=== PATIENT | female | born 1960 | race African-American/Black ===

== ENCOUNTER 2016-09-25 08:17 | Emergency (ER) | payer OTHER ==
[~2016-09-25] VITALS: Ht 170.2 cm; Wt 75.5 kg
[~2016-09-25 08:17] MED LIST: ADVAIR DISK1 IN; ADVAIR DISK1 INH; ADVAIR DISK2 IN; ALBUTEROL S2.5 MG/.5 IN; ALBUTEROL SUL0.083 % IN; ALBUTEROL2.5 MG/3 M IN; ALBUTEROL2.5 MG/31 IN; AMOXICILLIN/CL875 MG OR; AMOXICILLIN/CL875 MG PO; AMOXIL875 MG OR; AUGMENTIN875 MG PO; AUGMENTIN875TAB OR; AUGMENTIN875TAB PO; AVELOX400 MG PO; AZITHROMYCIN250 MG PO; CEFTIN250 MG PO; CEPHALEXIN500 M1 PO; CIPRO500 MG PO; DECADRON4 MG OR; DELSYM30 MG/5 ML OR; DEPO-MEDROL40 MG/ML IM; DEPO-MEDROL80 MG/ML IM; DOXYCYCL HYC100 M3 OR; DULERA1 AE1 IN; DUONEB IN; FLEXERIL PO; FLEXERIL5 M1 PO; FLONASE NASAL50 MCG; HYDROXYZ HCL25 MG OR; KETOROLAC60 MG/2 ML IM; LANTUS100 MG/ML SC; LEVAQUIN500 MG PO; LIPITOR20 M1 PO; LORATADINE10 M1 PO; LORTAB 10 PO; LORTAB 1010 MG PO; Levaquin OR; MEDDOSEPAK OR; MEDDOSEPAK PO; METFORMIN500 MG PO; MIRACLEMM PO; NAPROSYN500 MG PO; POLYTRIM OS; POLYTRIM OU; PRAVACHOL20 MG PO; PREDNISONE10 MG PO; PREDNISONE20 MG OR; PREDNISONE20 MG PO; PROAIR HFA IN; PROVENTIL HFA IN; PROVENTIL0.083 % IN; ROCEPHIN 1 GM1 GM IM; ROCEPHIN 2250 MG/VIA IM; SINGULAIR 10 MG10 MG PO; SINGULAIR 4MG.10 MG PO; SINGULAIR OR; SINGULAIR10 MG OR; SINGULAIR10 MG PO; SOLU-MEDROL125 MG IM; SULFACET SOD10 % OS; TESSALON PER100 MG PO; THEO-24200 MG OR; TRIAMCINOLON0.05 % EX; TRIAMCINOLON0.11 EX; ULTRAM50 MG PO; VENTOLIN HFA IN; ZITHROMAX250 MG OR; ZITHROMAX250 MG PO; ZITHROMAX500 MG OR; ZITHROMAX500 MG PO; ZPAK OR; ZPAK PO; [UNRECOGNIZED DRUG - OTHER]
[2016-09-25] MEDS ORDERED: PROTONIX40 M2 PO (09:09)
[2016-09-25] MEDS ORDERED: LOSARTAN POT50 MG PO (09:10)
[2016-09-25 09:45] LABS: URINE BILIRUBIN - DIPSTICK NEGATIVE (NEGATIVE); URINE BLOOD DIPSTICK NEGATIVE (NEGATIVE); URINE CLARITY CLEAR; URINE COLOR YELLOW; URINE GLUCOSE - DIPSTICK NEGATIVE (NEGATIVE); URINE KETONE NEGATIVE (NEGATIVE); URINE LEUK ESTERASE NEGATIVE (Negative); URINE NITRITE - DIPSTICK NEGATIVE (Negative); URINE PH 5.5 (4.5-8.0); URINE PROTEIN - DIPSTICK NEGATIVE (NEG-TRACE); URINE SPECIFIC GRAVITY >=1.030; URINE UROBILINOGEN - DIPSTICK 0.2 E.U./dL (0.2)
[2016-09-25 10:01] LABS: HEMATOCRIT 39.4 % (37.0-47.0); HEMOGLOBIN 12.5 g/dl (12.0-16.0); IMMATURE GRANULOCYTES 0.4 % (0.0-1.0); MEAN CELL VOLUME 72.8 fL CALC (80.0-100.0); MEAN CORPUSCULAR HGB 23.1 pG CALC (26.0-32.0); MEAN CORPUSCULAR HGB CONC 31.7 g/L CALC (32.0-36.0); NEUT# 4.96 thou/uL (2.00-7.15); RED BLOOD COUNT 5.41 mill/uL (4.20-5.60)
[2016-09-25 10:12] LABS: ALBUMIN 4.2 g/dL (3.2-5.0); ALKALINE PHOSPHATASE 77 u/l (38-126); ANION GAP 15 (6-22 (CALC)); BILIRUBIN, TOTAL 0.3 mg/dL (0.0-1.4); BUN 9 mg/dL (7-17); BUN/CREATININE RATIO 12 (12-20 (CALC)); CALCIUM 9.6 mg/dL (8.4-10.2); CARBON DIOXIDE 25 mmol/l (22-30); CHLORIDE 107 mmol/l (95-108); CREATININE 0.7 mg/dL (0.5-1.0); GFR > 60 ML/MIN (>=60 (CALC)); GFR FOR AFR.AMER. > 60 ML/MIN (>=60 (CALC)); GLUCOSE 89 mg/dL (65-105); LIPASE 205 u/l (23-300); POTASSIUM 4.2 mmol/l (3.5-5.1); SGOT/AST 14 u/l (14-36); SGPT/ALT 23 u/l (9-52); SODIUM 142 mmol/l (137-146); TOTAL PROTEIN 7.2 g/dL (6.3-8.2)
[2016-09-25] MEDS ORDERED: PERCOCET 5/325M1 TAB PO (11:30)
[2016-09-25 11:40] VITALS: BP 118/72
== END 2016-09-25 11:41 | disposition home or self-care (01) | DRG 392 ==
LOC: ED 08:17
PROVIDERS: Emergency Medicine
DX: R10.2 Pelvic and perineal pain (principal); F17.210 Nicotine dependence, cigarettes, uncomplicated; J45.909 Unspecified asthma, uncomplicated; E78.00 Pure hypercholesterolemia, unspecified; Z90.710 Acquired absence of both cervix and uterus

== ENCOUNTER 2016-10-22 14:44 | Day surgery (SDC) | payer OTHER ==
[~2016-10-22] VITALS: Ht 170.2 cm; Wt 72.6 kg
[~2016-10-22 14:44] MED LIST changes: +CLARITIN10 M1 PO; +LOSARTAN POT50 MG PO; +PERCOCET 5/325M1 TAB PO; +PROAIR HFA108 MCG/AC PO; +PROTONIX40 M2 PO
[2016-10-22 17:07] VITALS: BP 114/77
== END 2016-10-22 16:52 | disposition home or self-care (01) | DRG 392 ==
LOC: ENDO 14:44 → ORM 17:55 → ENDO 17:55 → ORM 18:30
PROVIDERS: ATTEND Internal Medicine Gastroenterology
PROC: 0DB68ZX Excision of Stomach, Via Natural or Artificial Opening Endoscopic, Diagnostic (ICD-10-PCS; principal; 2016-10-22)
DX: K21.9 Gastro-esophageal reflux disease without esophagitis (principal); F45.8 Other somatoform disorders; K59.09 Other constipation; J45.909 Unspecified asthma, uncomplicated; K29.50 Unspecified chronic gastritis without bleeding; K44.9 Diaphragmatic hernia without obstruction or gangrene; J34.89 Other specified disorders of nose and nasal sinuses; Z86.010 Personal history of colon polyps

== ENCOUNTER 2017-04-11 07:03 | Day surgery (SDC) | payer OTHER ==
[~2017-04-11] VITALS: Ht 170.2 cm; Wt 68.0 kg
[~2017-04-11 07:03] MED LIST changes: +IPRATROPIU0.5 MG/3 M IN; +LIPITOR40 M1 PO; +MOTRIN800 MG PO
[2017-04-11 10:28] VITALS: BP 116/67
== END 2017-04-11 10:20 | disposition home or self-care (01) | DRG 951 ==
LOC: ENDO 07:03 → ORM 09:00 → ENDO 10:20
PROVIDERS: ATTEND Surgery
PROC: 0DBL8ZX Excision of Transverse Colon, Via Natural or Artificial Opening Endoscopic, Diagnostic (ICD-10-PCS; principal; 2017-04-11)
DX: Z12.11 Encounter for screening for malignant neoplasm of colon (principal); D12.3 Benign neoplasm of transverse colon; F17.210 Nicotine dependence, cigarettes, uncomplicated; Z86.010 Personal history of colon polyps

== ENCOUNTER 2017-11-15 10:54 | Emergency (ER) | payer OTHER ==
[~2017-11-15] VITALS: Ht 170.2 cm; Wt 72.3 kg
[~2017-11-15 10:54] MED LIST changes: +GENTAMICIN15 ML/BTL OU
[2017-11-15] MEDS ORDERED: ZITHROMAX250 MG PO (11:05)
[2017-11-15] MEDS ORDERED: CRESTOR40 MG PO (11:09)
[2017-11-15] MEDS ORDERED: HYDROMORPHON8 MG PO (11:09)
[2017-11-15 11:15] VITALS: BP 120/61
== END 2017-11-15 11:15 | disposition home or self-care (01) | DRG 153 ==
LOC: ED 10:54
DX: J32.9 Chronic sinusitis, unspecified (principal); I10 Essential (primary) hypertension; E78.00 Pure hypercholesterolemia, unspecified; R05 Cough; R09.81 Nasal congestion

== ENCOUNTER 2018-01-09 00:05 | Emergency (ER) | payer OTHER ==
[~2018-01-09] VITALS: Ht 170.2 cm; Wt 68.0 kg
[~2018-01-09 00:05] MED LIST changes: +CRESTOR40 MG PO; +HYDROMORPHON8 MG PO
[2018-01-09] MEDS ORDERED: BENADRYL 50MG C50 MG PO (00:30)
[2018-01-09 00:50] VITALS: BP 117/88
== END 2018-01-09 00:50 | disposition home or self-care (01) ==
LOC: ED 00:05
DX: T78.40XA Allergy, unspecified, initial encounter (principal); I10 Essential (primary) hypertension; E78.00 Pure hypercholesterolemia, unspecified; F17.210 Nicotine dependence, cigarettes, uncomplicated; X58.XXXA Exposure to other specified factors, initial encounter

== ENCOUNTER 2018-03-19 06:52 | Emergency (ER) | payer OTHER ==
[~2018-03-19] VITALS: Ht 170.2 cm; Wt 72.7 kg
[~2018-03-19 06:52] MED LIST changes: +BENADRYL 50MG C50 MG PO
[2018-03-19] MEDS ORDERED: PREDNISONE50 MG PO (07:21)
[2018-03-19] MEDS ORDERED: ZITHROMAX250 MG PO (07:21)
[2018-03-19] MEDS ORDERED: ALBUTEROL SUL0.083 % IN (07:21)
[2018-03-19 07:50] VITALS: BP 132/83
== END 2018-03-19 07:55 | disposition home or self-care (01) ==
LOC: ED 06:52
DX: J45.901 Unspecified asthma with (acute) exacerbation (principal); J20.9 Acute bronchitis, unspecified; I10 Essential (primary) hypertension; F17.210 Nicotine dependence, cigarettes, uncomplicated; T48.6X6A Underdosing of antiasthmatics, initial encounter; Z91.128 Patient's intentional underdosing of medication regimen for other reason; R05 Cough; R09.81 Nasal congestion; R09.89 Other specified symptoms and signs involving the circulatory and respiratory systems

== ENCOUNTER 2018-08-13 09:51 | Emergency (ER) | payer OTHER ==
[~2018-08-13] VITALS: Ht 170.2 cm; Wt 77.0 kg
[~2018-08-13 09:51] MED LIST changes: +PREDNISONE50 MG PO
[2018-08-13] MEDS ORDERED: ZITHROMAX250 MG PO (11:13)
[2018-08-13] MEDS ORDERED: MEDDOSEPAK PO (11:13)
[2018-08-13 11:23] VITALS: BP 144/93
== END 2018-08-13 11:23 | disposition home or self-care (01) ==
LOC: ED 09:51
DX: J06.9 Acute upper respiratory infection, unspecified (principal); J45.909 Unspecified asthma, uncomplicated; I10 Essential (primary) hypertension; F17.210 Nicotine dependence, cigarettes, uncomplicated; R09.81 Nasal congestion; R05 Cough; R06.2 Wheezing

== ENCOUNTER 2018-11-18 15:57 | Emergency (ER) | payer OTHER ==
[~2018-11-18] VITALS: Ht 170.2 cm; Wt 72.0 kg
[2018-11-18 16:31] LABS: HEMATOCRIT 41.1 % (37.0-47.0); HEMOGLOBIN 12.9 g/dl (12.0-16.0); IMMATURE GRANULOCYTES 0.4 % (0.0-5.0); MEAN CELL VOLUME 73.3 fL CALC (80.0-100.0); MEAN CORPUSCULAR HGB CONC 31.4 g/L CALC (32.0-36.0); NEUT# 7.01 thou/uL (2.00-7.15); RED BLOOD COUNT 5.61 mill/uL (4.20-5.60); RED CELL DISTRI WIDTH 15.9 % (11.5-15.5)
[2018-11-18 16:53] LABS: ALBUMIN 4.1 g/dL (3.2-5.0); ALKALINE PHOSPHATASE 86 u/l (38-126); ANION GAP 13 (6-22 (CALC)); BUN 12 mg/dL (7-17); BUN/CREATININE RATIO 14 (12-20 (CALC)); CARBON DIOXIDE 24 mmol/l (22-30); CHLORIDE 107 mmol/l (95-108); CREATININE 0.9 mg/dL (0.5-1.0); GFR > 60 ML/MIN (>=60 (CALC)); GFR FOR AFR.AMER. > 60 ML/MIN (>=60 (CALC)); LIPASE 202 u/l (23-300); POTASSIUM 3.4 mmol/l (3.5-5.1); SODIUM 141 mmol/l (137-146); TOTAL PROTEIN 6.9 g/dL (6.3-8.2)
[2018-11-18 16:57] LABS: BILIRUBIN, TOTAL 0.5 mg/dL (0.0-1.4); SGOT/AST 30 u/l (14-36)
[2018-11-18 19:35] VITALS: BP 121/67
== END 2018-11-18 19:57 | disposition home or self-care (01) ==
LOC: ED 15:57
PROVIDERS: Family Medicine
DX: R07.89 Other chest pain (principal); I10 Essential (primary) hypertension; F17.200 Nicotine dependence, unspecified, uncomplicated; R19.7 Diarrhea, unspecified

== ENCOUNTER 2019-02-18 10:51 | Emergency (ER) | payer OTHER ==
[~2019-02-18] VITALS: Ht 170.2 cm; Wt 74.6 kg
[~2019-02-18 10:51] MED LIST changes: +DILAUDID8 MG PO; +LIPITOR80 M1 PO; +PROTONIX40 MG PO; +VITAMIN B-121000 MCG PO; +VITAMIN D31000 UNI1 PO
[2019-02-18 11:20] VITALS: BP 141/63
== END 2019-02-18 11:18 | disposition home or self-care (01) ==
LOC: ED 10:51
DX: I10 Essential (primary) hypertension (principal); F17.210 Nicotine dependence, cigarettes, uncomplicated

== ENCOUNTER 2019-02-26 05:50 | Observation (INO) | payer OTHER ==
[~2019-02-26] VITALS: Ht 170.2 cm; Wt 73.0 kg
[2019-02-26 06:51] LABS: HEMATOCRIT 43.4 % (37.0-47.0); HEMOGLOBIN 13.7 g/dl (12.0-16.0); IMMATURE GRANULOCYTES 0.2 % (0.0-5.0); MEAN CELL VOLUME 71.1 fL CALC (80.0-100.0); MEAN CORPUSCULAR HGB 22.5 pG CALC (26.0-32.0); MEAN CORPUSCULAR HGB CONC 31.6 g/L CALC (32.0-36.0); NEUT# 2.27 thou/uL (2.00-7.15); RED BLOOD COUNT 6.1 mill/uL (4.20-5.60); RED CELL DISTRI WIDTH 15.6 % (11.5-15.5)
[2019-02-26 07:05] LABS: ALBUMIN 4.3 g/dL (3.2-5.0); ALKALINE PHOSPHATASE 71 u/l (38-126); AMYLASE 73 u/l (30-110); ANION GAP 14 (6-22 (CALC)); BILIRUBIN, TOTAL 0.5 mg/dL (0.0-1.4); BUN 11 mg/dL (7-17); BUN/CREATININE RATIO 13 (12-20 (CALC)); CARBON DIOXIDE 25 mmol/l (22-30); CHLORIDE 101 mmol/l (95-108); CREATININE 0.9 mg/dL (0.5-1.0); GFR > 60 ML/MIN (>=60 (CALC)); GFR FOR AFR.AMER. > 60 ML/MIN (>=60 (CALC)); SGOT/AST 44 u/l (14-36); SODIUM 136 mmol/l (137-146)
[2019-02-26 09:50] VITALS: BP 115/69
[2019-02-26 10:03] LABS: COCAINE NEGATIVE (NEGATIVE); METHADONE NEGATIVE (NEGATIVE); TETRAHYDROCANNABIONOL NEGATIVE (NEGATIVE); TRICYLIC ANTIDEPRESSANTS NEGATIVE (NEGATIVE)
[2019-02-26 10:04] LABS: BARBITURATES NEGATIVE (NEGATIVE); OXCYCODONE NEGATIVE (NEGATIVE)
[2019-02-26 14:30] VITALS: BP 94/54
[2019-02-26 19:51] VITALS: BP 95/55
[2019-02-27 04:00] VITALS: BP 95/63
[2019-02-27 06:18] LABS: C. DIFFICILE TOXIN A&B NEGATIVE (NEGATIVE)
[2019-02-27 07:46] LABS: URINE BILIRUBIN - DIPSTICK NEGATIVE (NEGATIVE); URINE BLOOD DIPSTICK NEGATIVE (NEGATIVE); URINE COLOR DK. YELLOW; URINE GLUCOSE - DIPSTICK NEGATIVE (NEGATIVE); URINE KETONE 15 mg/dL (NEGATIVE); URINE LEUK ESTERASE NEGATIVE (NEGATIVE); URINE NITRITE - DIPSTICK NEGATIVE (Negative); URINE PH 5.5 (4.5-8.0); URINE PROTEIN - DIPSTICK NEGATIVE (NEG-TRACE); URINE UROBILINOGEN - DIPSTICK 0.2 E.U./dL (0.2)
[2019-02-27 08:43] VITALS: BP 104/63
[2019-02-27 15:53] VITALS: BP 138/79
[2019-02-27 19:50] VITALS: BP 117/63
[2019-02-28 04:40] VITALS: BP 109/67
[2019-02-28 07:50] VITALS: BP 125/70
[2019-02-28 08:51] VITALS: BP 125/70
[2019-02-28] MEDS ORDERED: METRONIDAZOL500 MG PO (09:36)
[2019-02-28] MEDS ORDERED: PREDNISONE10 MG PO (09:36)
[2019-02-28] MEDS ORDERED: Levaquin PO (09:36)
[2019-02-28] MEDS ORDERED: NICODERM C21 MG/242 TD (09:36)
[2019-02-28] MEDS ORDERED: FLORASTOR250 M1 PO (09:36)
== END 2019-02-28 11:31 | disposition home or self-care (01) ==
LOC: ED 05:50 → ED-I 07:33 → ED 07:47 → MS2 07:48
PROVIDERS: Family Medicine; ADMIT Internal Medicine; ATTEND Internal Medicine
DX: J44.1 Chronic obstructive pulmonary disease with (acute) exacerbation (principal); J45.901 Unspecified asthma with (acute) exacerbation; K52.9 Noninfective gastroenteritis and colitis, unspecified; I10 Essential (primary) hypertension; E78.5 Hyperlipidemia, unspecified; F17.210 Nicotine dependence, cigarettes, uncomplicated; G89.29 Other chronic pain
CPT/HCPCS: G0378; J1956

== ENCOUNTER 2019-05-23 15:14 | Observation (INO) | payer OTHER ==
[~2019-05-23] VITALS: Ht 170.2 cm; Wt 78.2 kg
[~2019-05-23 15:14] MED LIST changes: +FLORASTOR250 M1 PO; +Levaquin PO; +METRONIDAZOL500 MG PO; +NICODERM C21 MG/242 TD
--- NOTE | 2019-05-23 15:35 | NUR ---
EDP AT BEDSIDE
--- NOTE | 2019-05-23 15:35 | NUR ---
PT FOLLOWS COMMANDS, SUGGISH WITH SLURRED SPEECH
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
--- NOTE | 2019-05-23 15:40 | NUR ---
PT PULLED J LOOP OFF OF IV, BLOOD STARTED TO SQUIRT OUT, BLEEDING WAS CONTAINED AND HUB APPLIED. SECURE BANDAGE APPLIED FOR SAFETY.
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
[2019-05-23 16:12] LABS: IMMATURE GRANULOCYTES 1.1 % (0.0-5.0); MEAN CORPUSCULAR HGB 23.1 pG CALC (26.0-32.0); MEAN CORPUSCULAR HGB CONC 31.3 g/L CALC (32.0-36.0); NEUT# 7.26 thou/uL (2.00-7.15); RED BLOOD COUNT 4.97 mill/uL (4.20-5.60); RED CELL DISTRI WIDTH 16.1 % (11.5-15.5)
[2019-05-23 16:13] LABS: HEMATOCRIT 36.8 % (37.0-47.0); HEMOGLOBIN 11.5 g/dl (12.0-16.0)
[2019-05-23 16:30] LABS: ALBUMIN 4.2 g/dL (3.2-5.0); ALKALINE PHOSPHATASE 70 u/l (38-126); ANION GAP 14 (6-22 (CALC)); BILIRUBIN, TOTAL 0.6 mg/dL (0.0-1.4); BUN 7 mg/dL (7-17); BUN/CREATININE RATIO 11 (12-20 (CALC)); CARBON DIOXIDE 20 mmol/l (22-30); CHLORIDE 107 mmol/l (95-108); CREATININE 0.7 mg/dL (0.5-1.0); GFR > 60 ML/MIN (>=60 (CALC)); GFR FOR AFR.AMER. > 60 ML/MIN (>=60 (CALC)); LIPASE 106 u/l (23-300); POTASSIUM 3.4 mmol/l (3.5-5.1); SGOT/AST 20 u/l (14-36); SODIUM 138 mmol/l (137-146); TOTAL PROTEIN 7.4 g/dL (6.3-8.2)
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
--- NOTE | 2019-05-23 17:30 | NUR ---
PT MADE AWARE OF THE NEED FOR A URINE SAMPLE, PT STATES THAT SHE IS UNABLE TO
--- NOTE | 2019-05-23 18:02 | NUR ---
SBAR PRINTED TO FLOOR
--- NOTE | 2019-05-23 18:38 | NUR ---
SPOKE TO BARBARA, PHARMACY PRODUCTION EXPEDITER. PER BARBARA, DILUTE THE NARCAN IN 500 MLS OF NORMAL SALINE AND INFUSE OVER 1 HOUR.
[2019-05-23 19:06] LABS: URINE BILIRUBIN - DIPSTICK NEGATIVE (NEGATIVE); URINE BLOOD DIPSTICK NEGATIVE (NEGATIVE); URINE COLOR YELLOW; URINE GLUCOSE - DIPSTICK NEGATIVE (NEGATIVE); URINE KETONE NEGATIVE (NEGATIVE); URINE LEUK ESTERASE NEGATIVE (NEGATIVE); URINE NITRITE - DIPSTICK NEGATIVE (Negative); URINE PH 5.5 (4.5-8.0); URINE PROTEIN - DIPSTICK NEGATIVE (NEG-TRACE); URINE UROBILINOGEN - DIPSTICK 0.2 E.U./dL (0.2)
[2019-05-23 19:12] LABS: BARBITURATES NEGATIVE (NEGATIVE); COCAINE NEGATIVE (NEGATIVE); METHADONE NEGATIVE (NEGATIVE); OXCYCODONE NEGATIVE (NEGATIVE); TETRAHYDROCANNABIONOL NEGATIVE (NEGATIVE); TRICYLIC ANTIDEPRESSANTS NEGATIVE (NEGATIVE)
--- NOTE | 2019-05-23 20:23 | NUR ---
ATTEMPTED TO CALL ICU, NO ANSWER, WILL TRY AGAIN IN FIVE MINS
--- NOTE | 2019-05-23 20:41 | NUR ---
CALLED AND NURSE PAWAN STATED THAT SHE WILL CALL BACK AFTER SHE HUNG A DRIP. WILL BE ON STANDBY
--- NOTE | 2019-05-23 21:21 | NUR ---
REPORT YEFRI VILLALTA IN ICU
--- NOTE | 2019-05-23 21:22 | NUR ---
PT TRANSPORTED TO ICU VIA STRETCHER. PT STABLE AND IN NO DISTRESS. CARE ASSUMED TO PAWAN
[2019-05-23 22:00] VITALS: BP 119/72
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
[2019-05-23 22:05] VITALS: BP 119/72
[2019-05-23 23:00] VITALS: BP 131/78
[2019-05-24] VITALS (8 sets, daily range): BP systolic 106–149; BP diastolic 49–76
--- NOTE | 2019-05-24 00:08 | NUR ---
PT RESTING IN BED WITH EYES CLOSED AND FACE RELAXED. FAMILY IN TO BRING CELL PHONE AND VISIT SHORTLY THAN LEFT. REMAINS IN SR WITH HR 60S 02 SAT 100% ON RA. WILL CONTINUE TO MONITOR.
--- NOTE | 2019-05-24 02:14 | NUR ---
PT CONTINUES TO REST WITH EYES CLOSED AND FACE RELAXED. VITAL SIGNS REMAIN STABLE. WILL CONTINUE TO MONITOR.
--- NOTE | 2019-05-24 04:17 | NUR ---
REMAINS STABLE. NO CHANGE IN ASSESSMENT. UP TO [facility] PRN.
--- NOTE | 2019-05-24 06:00 | NUR ---
CONTINUES TO REST WITH EYES CLOSED AND FACE RELAXED. NO COMPLAINTS AND VITAL SIGNS REMAIN STABLE AND AFEBRILE.
--- NOTE | 2019-05-24 07:10 | NUR ---
pt awake in bed; no apparent distress noted; pt offers no complaints; assessment completed at this time; pt alert and oriented; denies pain; no n/v noted; resp even and unlabored; lungs clear with exp wheezing; pt denies resp distress; skin color wnl; ra; fnp cough noted; hr reg; strong pulses; no edema noted; bilat tavo hose intact; sr on monitor; abd soft with bs present; no bm noted per underwriter solicitation director; pt admits to voiding without complication; no urine to inspect at this time; bsc; #18 intact to lac; no redness or edema noted at site; plan of care explained; pt encouraged to use call light; will continue to monitor
--- NOTE | 2019-05-24 08:10 | NUR ---
Dr Griggs present at bedside to assess pt and discuss plan of care
--- NOTE | 2019-05-24 08:21 | NUR ---
awake in bed; offers no complaints; no apparent distress noted; sr on monitor; iv intact; call light within reach; will continue to monitor
[2019-05-24 09:14] LABS: HEMATOCRIT 38.6 % (37.0-47.0); HEMOGLOBIN 12.3 g/dl (12.0-16.0); MEAN CELL VOLUME 73.7 fL CALC (80.0-100.0); MEAN CORPUSCULAR HGB 23.5 pG CALC (26.0-32.0); MEAN CORPUSCULAR HGB CONC 31.9 g/L CALC (32.0-36.0); RED BLOOD COUNT 5.24 mill/uL (4.20-5.60); RED CELL DISTRI WIDTH 16.6 % (11.5-15.5)
[2019-05-24 09:30] LABS: BUN 8 mg/dL (7-17); BUN/CREATININE RATIO 12 (12-20 (CALC)); CHLORIDE 107 mmol/l (95-108); CREATININE 0.6 mg/dL (0.5-1.0); GFR > 60 ML/MIN (>=60 (CALC)); GFR FOR AFR.AMER. > 60 ML/MIN (>=60 (CALC)); SODIUM 139 mmol/l (137-146)
[2019-05-24 09:31] LABS: ANION GAP 10 (6-22 (CALC)); CARBON DIOXIDE 26 mmol/l (22-30); POTASSIUM 4.3 mmol/l (3.5-5.1)
--- NOTE | 2019-05-24 10:05 | NUR ---
awake in bed; no apparent distress noted; pt offers no complaints; iv intact; sr on monitor; pt anxiously awaiting discharge; plan of care/ labs explained; call light within reach; will continue to monitor
--- NOTE | 2019-05-24 10:20 | NUR ---
IV site discontinued, cath intact. No edema , no redness, voices no discomfort.
--- NOTE | 2019-05-24 10:31 | NUR ---
Discharge instructions given. Patient verbalizes understanding of same. Discharged in stable condition via Wheelchair to Home with family. All belongings sent with pt.
== END 2019-05-24 10:35 | disposition home or self-care (01) ==
LOC: ED 15:14 → ED-I 15:41 → ED 15:41 → ED-I 17:38 → ED 18:02 → ICU 18:03
PROVIDERS: Family Medicine; Internal Medicine; ADMIT Internal Medicine; ATTEND Internal Medicine
DX: G93.49 Other encephalopathy (principal); F10.129 Alcohol abuse with intoxication, unspecified; E87.2 Acidosis; D72.829 Elevated white blood cell count, unspecified; I10 Essential (primary) hypertension; J44.9 Chronic obstructive pulmonary disease, unspecified; E78.5 Hyperlipidemia, unspecified; F17.200 Nicotine dependence, unspecified, uncomplicated

== ENCOUNTER 2020-02-09 16:26 | Emergency (ER) | payer OTHER ==
[~2020-02-09] VITALS: Ht 170.2 cm; Wt 92.0 kg
[2020-02-09] MEDS ORDERED: DULERA1 AE1 IN (16:59)
[2020-02-09] MEDS ORDERED: SINGULAIR10 MG PO (16:59)
[2020-02-09] MEDS ORDERED: ATORVASTATIN CA80 MG PO (17:10)
[2020-02-09] MEDS ORDERED: LOSARTAN POTASS50 MG PO (17:10)
[2020-02-09 17:13] LABS: HEMATOCRIT 36.6 % (37.0-47.0); HEMOGLOBIN 11.1 g/dl (12.0-16.0); IMMATURE GRANULOCYTES 0.4 % (0.0-5.0); MEAN CELL VOLUME 74.1 fL CALC (80.0-100.0); MEAN CORPUSCULAR HGB 22.5 pG CALC (26.0-32.0); MEAN CORPUSCULAR HGB CONC 30.3 g/dL CAL (32.0-36.0); NEUT# 7.3 thou/uL (2.00-7.15); RED BLOOD COUNT 4.94 mill/uL (4.20-5.60); RED CELL DISTRI WIDTH 16.2 % (11.5-15.5)
[2020-02-09 17:27] LABS: ALBUMIN 4.3 g/dL (3.2-5.0); ALKALINE PHOSPHATASE 86 u/l (38-126); ANION GAP 12 (6-22 (CALC)); BUN 9 mg/dL (7-17); BUN/CREATININE RATIO 12 (12-20 (CALC)); CARBON DIOXIDE 26 mmol/l (22-30); CHLORIDE 107 mmol/l (95-108); CREATININE 0.7 mg/dL (0.5-1.0); ETHYL ALCOHOL 0 mg/dl (0-30); GFR > 60 ML/MIN (>=60 (CALC)); GFR FOR AFR.AMER. > 60 ML/MIN (>=60 (CALC)); LIPASE 234 u/l (23-300); MAGNESIUM 2.2 mg/dL (1.6-2.3); POTASSIUM 3.6 mmol/l (3.5-5.1); SGOT/AST 17 u/l (14-36); SODIUM 141 mmol/l (137-146); TOTAL PROTEIN 7.4 g/dL (6.3-8.2)
[2020-02-09 17:29] LABS: URINE BILIRUBIN - DIPSTICK NEGATIVE (NEGATIVE); URINE BLOOD DIPSTICK NEGATIVE (NEGATIVE); URINE COLOR YELLOW; URINE GLUCOSE - DIPSTICK NEGATIVE (NEGATIVE); URINE KETONE NEGATIVE (NEGATIVE); URINE LEUK ESTERASE NEGATIVE (NEGATIVE); URINE NITRITE - DIPSTICK NEGATIVE (Negative); URINE PROTEIN - DIPSTICK NEGATIVE (NEG-TRACE); URINE SPECIFIC GRAVITY >=1.030; URINE UROBILINOGEN - DIPSTICK 0.2 E.U./dL (0.2)
[2020-02-09 17:30] LABS: ACT PARTIAL THROMBO TIME 23.9 SECONDS (20.0-32.5); PROTHROMBIN TIME 10.1 SECONDS (9.0-12.5)
[2020-02-09 17:32] LABS: BILIRUBIN, TOTAL 0.3 mg/dL (0.0-1.4)
[2020-02-09] MEDS ORDERED: MECLIZINE25 MG PO (18:39)
[2020-02-09 18:45] VITALS: BP 136/72
== END 2020-02-09 18:55 | disposition home or self-care (01) ==
LOC: ED 16:26
DX: R42 Dizziness and giddiness (principal); I10 Essential (primary) hypertension; J45.909 Unspecified asthma, uncomplicated; T46.5X6A Underdosing of other antihypertensive drugs, initial encounter; F17.200 Nicotine dependence, unspecified, uncomplicated; Z91.128 Patient's intentional underdosing of medication regimen for other reason
CPT/HCPCS: Q9967

== ENCOUNTER 2020-10-02 13:25 | Emergency (ER) | payer OTHER ==
[~2020-10-02 13:25] MED LIST changes: +ATORVASTATIN CA80 MG PO; +LOSARTAN POTASS50 MG PO; +MECLIZINE25 MG PO
[2020-10-02 14:27] LABS: HEMATOCRIT 38.4 % (37.0-47.0); HEMOGLOBIN 11.7 g/dl (12.0-16.0); IMMATURE GRANULOCYTES 0.4 % (0.0-5.0); MEAN CELL VOLUME 73.4 fL CALC (80.0-100.0); MEAN CORPUSCULAR HGB 22.4 pG CALC (26.0-32.0); MEAN CORPUSCULAR HGB CONC 30.5 g/dL CAL (32.0-36.0); NEUT# 5.62 thou/uL (2.00-7.15); RED BLOOD COUNT 5.23 mill/uL (4.20-5.60)
[2020-10-02 14:39] LABS: ALBUMIN 4.5 g/dL (3.2-5.0); ALKALINE PHOSPHATASE 84 u/l (38-126); ANION GAP 11 (6-22 (CALC)); BUN 13 mg/dL (7-17); BUN/CREATININE RATIO 17 (12-20 (CALC)); CARBON DIOXIDE 27 mmol/l (22-30); CHLORIDE 104 mmol/l (95-108); CREATININE 0.8 mg/dL (0.5-1.0); GFR > 60 ML/MIN (>=60 (CALC)); GFR FOR AFR.AMER. > 60 ML/MIN (>=60 (CALC)); LIPASE 136 u/l (23-300); POTASSIUM 3.9 mmol/l (3.5-5.1); SGOT/AST 20 u/l (14-36); SODIUM 138 mmol/l (137-146)
[2020-10-02 14:40] LABS: BILIRUBIN, TOTAL 0.7 mg/dL (0.0-1.4)
[2020-10-02 15:19] LABS: URINE BILIRUBIN - DIPSTICK NEGATIVE (NEGATIVE); URINE BLOOD DIPSTICK NEGATIVE (NEGATIVE); URINE COLOR YELLOW; URINE GLUCOSE - DIPSTICK NEGATIVE (NEGATIVE); URINE KETONE NEGATIVE (NEGATIVE); URINE LEUK ESTERASE NEGATIVE (NEGATIVE); URINE PH 5.5 (4.5-8.0); URINE PROTEIN - DIPSTICK NEGATIVE (NEG-TRACE); URINE SPECIFIC GRAVITY >=1.030; URINE UROBILINOGEN - DIPSTICK 0.2 E.U./dL (0.2)
[2020-10-02 15:21] LABS: URINE NITRITE - DIPSTICK NEGATIVE (Negative)
[2020-10-02] MEDS ORDERED: TORADOL PO (16:09)
[2020-10-02 16:29] VITALS: BP 127/64
== END 2020-10-02 16:30 | disposition left against medical advice (07) | DRG 313 ==
LOC: ED 13:25
PROVIDERS: Family Medicine
DX: R07.89 Other chest pain (principal); I10 Essential (primary) hypertension; J45.909 Unspecified asthma, uncomplicated; K21.9 Gastro-esophageal reflux disease without esophagitis; F17.210 Nicotine dependence, cigarettes, uncomplicated; V49.50XA Passenger injured in collision with unspecified motor vehicles in traffic accident, initial encounter; Z91.19 Patient's noncompliance with other medical treatment and regimen
CPT/HCPCS: Q9967

== ENCOUNTER 2021-04-02 16:51 | Emergency (ER) | payer OTHER ==
[~2021-04-02] VITALS: Ht 170.2 cm; Wt 75.0 kg
[~2021-04-02 16:51] MED LIST changes: +TORADOL PO
[2021-04-02] MEDS ORDERED: MEDDOSEPAK PO (17:40)
[2021-04-02] MEDS ORDERED: ZITHROMAX250 MG PO (17:40)
[2021-04-02 17:43] VITALS: BP 145/75
== END 2021-04-02 18:02 | disposition home or self-care (01) ==
LOC: ED 16:51
DX: J06.9 Acute upper respiratory infection, unspecified (principal); I11.0 Hypertensive heart disease with heart failure; I50.9 Heart failure, unspecified; J44.9 Chronic obstructive pulmonary disease, unspecified; E78.00 Pure hypercholesterolemia, unspecified; K21.9 Gastro-esophageal reflux disease without esophagitis; F17.210 Nicotine dependence, cigarettes, uncomplicated; Z20.822 Contact with and (suspected) exposure to COVID-19

== ENCOUNTER 2021-04-25 11:44 | Observation (INO) | payer OTHER ==
[2021-04-25] VITALS (9 sets, daily range): BP systolic 97–135; BP diastolic 67–83
[~2021-04-25] VITALS: Ht 170.2 cm; Wt 68.0 kg
--- NOTE | 2021-04-25 11:50 | NUR ---
PT TO ROOM 15 VIA WC. ABLE TO STAND AND TRANSFER SELF.
[2021-04-25 12:48] LABS: IMMATURE GRANULOCYTES 0.4 % (0.0-5.0); MEAN CELL VOLUME 69.7 fL CALC (80.0-100.0); MEAN CORPUSCULAR HGB 22.9 pG CALC (26.0-32.0); MEAN CORPUSCULAR HGB CONC 32.9 g/dL CAL (32.0-36.0); NEUT# 10.68 thou/uL (2.00-7.15); RED BLOOD COUNT 6.46 mill/uL (4.20-5.60); RED CELL DISTRI WIDTH 16.9 % (11.5-15.5)
[2021-04-25 13:03] LABS: HEMOGLOBIN 14.8 g/dl (12.0-16.0)
[2021-04-25 13:05] LABS: ALBUMIN 4.9 g/dL (3.2-5.0); CREATININE 1.3 mg/dL (0.5-1.0); TOTAL PROTEIN 8.3 g/dL (6.3-8.2)
[2021-04-25 13:13] LABS: BILIRUBIN, TOTAL 0.9 mg/dL (0.0-1.4)
[2021-04-25 13:14] LABS: POTASSIUM 6.7 mmol/l (3.5-5.1)
--- NOTE | 2021-04-25 13:40 | NUR ---
PHARMACY CALLED FOR gtt.
[2021-04-25 13:50] LABS: URINE BILIRUBIN - DIPSTICK NEGATIVE (NEGATIVE); URINE BLOOD DIPSTICK NEGATIVE (NEGATIVE); URINE COLOR YELLOW; URINE GLUCOSE - DIPSTICK >=1000 mg/dL (NEGATIVE); URINE KETONE 15 mg/dL (NEGATIVE); URINE LEUK ESTERASE NEGATIVE (NEGATIVE); URINE PH 5.5 (4.5-8.0); URINE PROTEIN - DIPSTICK NEGATIVE (NEG-TRACE); URINE SPECIFIC GRAVITY <=1.005; URINE UROBILINOGEN - DIPSTICK 0.2 E.U./dL (0.2)
[2021-04-25 13:58] LABS: URINE NITRITE - DIPSTICK NEGATIVE (Negative)
--- NOTE | 2021-04-25 14:17 | NUR ---
PATIENT HAS FRIEND BEDSIDE.
--- NOTE | 2021-04-25 14:43 | NUR ---
PATIENT EDUCATED TO NEED FOR ADDITIONAL IV SITE, PATIENT IS BELLIGERENT TO STAFF, 3 NURSES AND FRONT OFFICE HELP. PATIENT REEDUCATED TO PPOC.
[2021-04-25] MEDS ORDERED: AMOXICILLIN500 MG PO (16:35)
--- NOTE | 2021-04-25 17:20 | NUR ---
REPORT CALLED TO ICU 8 RN
[2021-04-25 17:53] LABS: ANION GAP 12 (6-22 (CALC)); BUN 33 mg/dL (7-17); BUN/CREATININE RATIO 37 (12-20 (CALC)); CARBON DIOXIDE 33 mmol/l (22-30); CHLORIDE 93 mmol/l (95-108); CREATININE 0.9 mg/dL (0.5-1.0); GFR > 60 ML/MIN (>=60 (CALC)); GFR FOR AFR.AMER. > 60 ML/MIN (>=60 (CALC)); POTASSIUM 4.2 mmol/l (3.5-5.1); SODIUM 134 mmol/l (137-146)
--- NOTE | 2021-04-25 18:25 | NUR ---
PT ARRIVED TO THE FLOOR AT 1755. PT ON UNIT VIA STRETCHER AND ONE PERSON ASSISTANCE FROM THE ER. PT AMBULATORY WITH A STANDBY ASSISTANCE, TURN AND PIVOT. PT ORIENTATED TO ROOM, RIGHTS AND RESPONSIBILITIES. PT BELONGING INVENTORY, FALL CONTRACT AND ASSESSMENT AND HISTORY PREFORMED. PT EDUCATED OF CURRENT MEDICATIONS AND FREQUENCY OF VS. PT IN DENIAL OF DM DIAGNOSIS STATES "OH LORD DONT TELL ME THAT, IM NOT A DIABETIC, MY SISTER WAS A DIABETIC. THAT AINT ME." PT PROVIDED OF S/S OF DIABETES SUCH EXCESSIVE THIRST, WEIGHT LOSS AND PT'S AIC LAB MEASUREMENT. PT ASKS ONCE IM DISCHARGED I WONT BE A DIABETIC. WILL CONTINUE TO RE-EDUCATE PT. PT ALSO INFORMED OF NPO STATUS, STATES "THE HELL I AM, IM EATING THIS SALAD I BOUGHT FROM [employer]. TRY AND TAKE IT FROM ME." INFORMED PT OF POSSIBLE COMPLILCATIONS, STATES "I WONT EAT ENOUGH TO GET SICK OR CHANGE MY BLOOD SUGAR." WILL INFORM MD OF PT EATING. CALL LIGHT WITHIN REACH. INFORMED PT TO CALL FOR ASSISTANCE, WILL CONTINUE TO MONITOR CLOSELY.
[2021-04-25] MEDS ORDERED: FLONASE AL50 MCG/ACT IN (18:36)
[2021-04-25] MEDS ORDERED: PROVENTIL0.083 % IN (18:37)
[2021-04-25] MEDS ORDERED: ZPAK PO (18:37)
--- NOTE | 2021-04-25 18:45 | NUR ---
SBAR RECEIVED FROM KAMALJIT VENTURA. PATIENT RESTING QUIETLY IN BED. INSULIN DRIP @ 3ML/HR. NO DISTRESS NOTED. CALL LIGHT WITHIN REACH.
--- NOTE | 2021-04-25 19:45 | NUR ---
ASSESSMENT COMPLETE. PATIENT AWAKE, ALERT AND ORIENTED. VSS. NO DISTRESS NOTED. DENIES PAIN AT THIS TIME. EDUCATED ON INSULIN DRIP, REQUIRES RE-EDUCATION. BG 195, DRIP DECREASED TO 2ML/HR. PATIENT STABLE, CALL LIGHT WITHIN REACH.
--- NOTE | 2021-04-25 20:10 | NUR ---
DR. BORRERO CALLED APPROXIMATELY 1950, ORDERS RECEIVED. PATIENT GIVEN 15 UNITS LEVEMIR SUBCUTANEOUS, PER ORDER. INSTRUCTED TO DISCONTINUE INSULIN DRIP 1 HOUR AFTER INJECTION. WILL FOLLOW UP WITH ORDERS.
--- NOTE | 2021-04-25 21:10 | NUR ---
DISCONTINUED INSULIN DRIP PER MD ORDERS
[2021-04-26] VITALS (7 sets, daily range): BP systolic 93–140; BP diastolic 63–81
--- NOTE | 2021-04-26 00:37 | NUR ---
RESTING QUIETLY IN BED, EYES CLOSED. NO DISTRESS NOTED. BED IN LOW POSITION, LOCKED. CALL LIGHT WITHIN REACH.
--- NOTE | 2021-04-26 02:44 | NUR ---
PATIENT OOB TO RESTROOM, STANDBY ASSIST, TOLERATED WELL. 550ML CLEAR SADAF URINE OUT. VERBAL DIABETES EDUCATION PROVIDED TO PATIENT. PATIENT APPEARS TO BE IN DENIAL STATING, "I'M NOT DIABETIC, DON'T TELL ME THAT. MY SISTER OF DIABETES." DISCUSSED DIET AND EXERCISE WITH PATIENT. RECOMMENDED THAT PATIENT CONSULTS WITH DIETITIAN FOR FURTHER EDUCATION. WILL CONTINUE TO RE-EDUCATE AND ANSWER QUESTIONS NEEDED.
--- NOTE | 2021-04-26 04:34 | NUR ---
PATIENT RESTING COMFORTABLY IN BED, EYES CLOSED. ACCU CHECK PERFORMED, RESULT 233. NO C/O PAIN AT THIS TIME. VSS. CALL LIGHT WITHIN REACH, BED IN LOW POSITION
[2021-04-26 05:10] LABS: HEMATOCRIT 37.8 % (37.0-47.0); HEMOGLOBIN 12.3 g/dl (12.0-16.0); MEAN CELL VOLUME 70.7 fL CALC (80.0-100.0); MEAN CORPUSCULAR HGB CONC 32.5 g/dL CAL (32.0-36.0); RED BLOOD COUNT 5.35 mill/uL (4.20-5.60)
[2021-04-26 05:20] LABS: ANION GAP 12 (6-22 (CALC)); BUN 22 mg/dL (7-17); BUN/CREATININE RATIO 32 (12-20 (CALC)); CARBON DIOXIDE 24 mmol/l (22-30); CHLORIDE 102 mmol/l (95-108); CREATININE 0.7 mg/dL (0.5-1.0); GFR > 60 ML/MIN (>=60 (CALC)); GFR FOR AFR.AMER. > 60 ML/MIN (>=60 (CALC)); MAGNESIUM 2.2 mg/dL (1.6-2.3); POTASSIUM 4.1 mmol/l (3.5-5.1); SODIUM 134 mmol/l (137-146)
--- NOTE | 2021-04-26 07:00 | NUR ---
SHIFT REPORT RECEIVED FROM LORENZO CERVANTES. PT AWAKE ALERT AND APPROPRIATE. DENIES PAIN SOB OR DISCOMFORT. VSS. ACCUCHECK OBTAINED AND INSULIN GIVEN ON PREVIOUS SHIFT. CALL LIGHT WITHIN REACH. INSTRUCTED PT TO CALL FOR ASSISTANCE, VERBALIZES UNDERSTANDING.
--- NOTE | 2021-04-26 08:05 | NUR ---
PT REFUSING TO EAT BREAKFAST TRAY, STATES "I DONT TRUST THIS FOOD" WHEN ASKED WHY, PT STATES "DO I HAVE TO HAVE A REASON?" TRAY REMOVED, PT ASKED IF SHE WOULD FEEL MORE COMFORTABLE FROM FOOD FROM AN OUTSIDE SOURCE. STATES SHE WOULD LIKE TO CALL HER SISTER FOR FOOD, AND IF NOT SHE WILL LEAVE. PT EDUCATED AND REMINDED OF NEW DIAGNOSIS OF DM. PT OPEN AND WILLING TO STAY. WILL CONTINUE TO PROVIDE EDUCATION NEEDED.
--- NOTE | 2021-04-26 10:37 | NUR ---
MD ON FLOOR AT THIS TIME. PT STATES UNDERSTANDING OF POSSIBLE DISCHARGE ONCE LABS RESULT. WILL PROVIDE EDUCATION OF: CHECKING SUGAR DRAWING UP INSULIN INJECTING INSULIN AND SUBCUTANEOUS LOCATIONS ON THE BODY DIET OPTIONS FOR DIABETICS
[2021-04-26] MEDS ORDERED: LEVEMIR100 UNIT SC (11:32)
--- NOTE | 2021-04-26 12:00 | NUR ---
PT TAUGHT HOW TO CHECK SUGAR USING ACCUCHECK MACHINE, SLIDING SCALE PROVIDED FOR PATIENT TO SELECT AMOUNT OF COVERAGE. ACCURATELY READ AND CHOSE APPROPRIATE AMOUNT OF INSULIN. PT HAS TROUBLE DRAWING UP ONE UNIT OF INSULIN FOR BLOOD SUGAR OF 199. PT ABLE TO GIVE INSULIN, AFTER SOME ENCOURAGEMENT. MD MADE AWARE OF PT'S FIRST ATTEMPT. CONTINUE WITH DISCHARGE AND ENCOURAGE FOLLOW UP WITH PRIMARY CARE FOR FURTHER DIABETIC MANAGEMENT AND EDUCATION.
[2021-04-26] MEDS ORDERED: METFORMIN500 M2 PO (12:18)
--- NOTE | 2021-04-26 13:55 | NUR ---
pt discharged at this time in stable condition. pt given education/ verbal discussion of dm gone through at this time. states understanding. states she will make an appointment with pcp in am.
== END 2021-04-26 13:55 | disposition home or self-care (01) ==
LOC: ED 11:44 → ED-I 14:11 → ICU 16:33 → ED 16:33 → ICU 04-26 13:55
PROVIDERS: Family Medicine; ADMIT Hospitalist; ATTEND Hospitalist
DX: E11.10 Type 2 diabetes mellitus with ketoacidosis without coma (principal); E87.5 Hyperkalemia; I10 Essential (primary) hypertension; J44.9 Chronic obstructive pulmonary disease, unspecified; E78.5 Hyperlipidemia, unspecified; E87.1 Hypo-osmolality and hyponatremia; E87.8 Other disorders of electrolyte and fluid balance, not elsewhere classified; N17.9 Acute kidney failure, unspecified; E86.0 Dehydration; K21.9 Gastro-esophageal reflux disease without esophagitis; F17.210 Nicotine dependence, cigarettes, uncomplicated; Z20.822 Contact with and (suspected) exposure to COVID-19

== ENCOUNTER 2021-04-27 16:11 | Emergency (ER) | payer OTHER ==
[~2021-04-27] VITALS: Ht 170.2 cm; Wt 85.0 kg
[~2021-04-27 16:11] MED LIST changes: +AMOXICILLIN500 MG PO; +FLONASE AL50 MCG/ACT IN; +LEVEMIR100 UNIT SC; +METFORMIN500 M2 PO
[2021-04-27 17:31] LABS: HEMATOCRIT 38.6 % (37.0-47.0); HEMOGLOBIN 12.7 g/dl (12.0-16.0); IMMATURE GRANULOCYTES 0.3 % (0.0-5.0); MEAN CELL VOLUME 70.2 fL CALC (80.0-100.0); MEAN CORPUSCULAR HGB 23.1 pG CALC (26.0-32.0); MEAN CORPUSCULAR HGB CONC 32.9 g/dL CAL (32.0-36.0); NEUT# 3.33 thou/uL (2.00-7.15); RED BLOOD COUNT 5.5 mill/uL (4.20-5.60); RED CELL DISTRI WIDTH 15.2 % (11.5-15.5)
[2021-04-27 17:48] LABS: BUN 13 mg/dL (7-17); BUN/CREATININE RATIO 24 (12-20 (CALC)); CARBON DIOXIDE 21 mmol/l (22-30); CHLORIDE 105 mmol/l (95-108); CREATININE 0.6 mg/dL (0.5-1.0); GFR > 60 ML/MIN (>=60 (CALC)); GFR FOR AFR.AMER. > 60 ML/MIN (>=60 (CALC)); SODIUM 133 mmol/l (137-146); TOTAL PROTEIN 7.3 g/dL (6.3-8.2)
[2021-04-27 17:55] LABS: ALBUMIN 3.9 g/dL (3.2-5.0); ALKALINE PHOSPHATASE 73 u/l (38-126); ANION GAP 11 (6-22 (CALC)); BILIRUBIN, TOTAL 1.9 mg/dL (0.0-1.4); SGOT/AST 72 u/l (14-36)
[2021-04-27 18:49] VITALS: BP 138/87
== END 2021-04-27 18:50 | disposition home or self-care (01) ==
LOC: ED 16:11
PROVIDERS: Family Medicine
DX: E11.9 Type 2 diabetes mellitus without complications (principal); I10 Essential (primary) hypertension; F17.200 Nicotine dependence, unspecified, uncomplicated; Z79.4 Long term (current) use of insulin; Z79.84 Long term (current) use of oral hypoglycemic drugs

== ENCOUNTER 2021-04-29 06:17 | Emergency (ER) | payer OTHER ==
[~2021-04-29] VITALS: Ht 170.2 cm; Wt 69.0 kg
[2021-04-29 07:39] LABS: HEMOGLOBIN 13.5 g/dl (12.0-16.0); IMMATURE GRANULOCYTES 0.1 % (0.0-5.0); MEAN CELL VOLUME 73.1 fL CALC (80.0-100.0); MEAN CORPUSCULAR HGB CONC 31.4 g/dL CAL (32.0-36.0); NEUT# 4.07 thou/uL (2.00-7.15); RED BLOOD COUNT 5.88 mill/uL (4.20-5.60)
[2021-04-29 08:37] LABS: ALBUMIN 3.3 g/dL (3.2-5.0); ALKALINE PHOSPHATASE 74 u/l (38-126); ANION GAP 8 (6-22 (CALC)); BUN 8 mg/dL (7-17); BUN/CREATININE RATIO 14 (12-20 (CALC)); CARBON DIOXIDE 25 mmol/l (22-30); CHLORIDE 106 mmol/l (95-108); CREATININE 0.6 mg/dL (0.5-1.0); GFR > 60 ML/MIN (>=60 (CALC)); GFR FOR AFR.AMER. > 60 ML/MIN (>=60 (CALC)); POTASSIUM 4.3 mmol/l (3.5-5.1); SGOT/AST 36 u/l (14-36); SODIUM 135 mmol/l (137-146); TOTAL PROTEIN 6.2 g/dL (6.3-8.2)
[2021-04-29 08:53] LABS: BILIRUBIN, TOTAL 0.5 mg/dL (0.0-1.4)
[2021-04-29 09:07] VITALS: BP 124/69
== END 2021-04-29 09:07 | disposition home or self-care (01) ==
LOC: ED 06:17
DX: E11.65 Type 2 diabetes mellitus with hyperglycemia (principal); I10 Essential (primary) hypertension; F17.200 Nicotine dependence, unspecified, uncomplicated; Z79.4 Long term (current) use of insulin; Z79.84 Long term (current) use of oral hypoglycemic drugs

== ENCOUNTER 2021-07-13 05:19 | Emergency (ER) | payer OTHER ==
[~2021-07-13] VITALS: Ht 170.2 cm; Wt 68.0 kg
[2021-07-13] MEDS ORDERED: PREDNISONE50 MG PO (05:37)
[2021-07-13 05:54] VITALS: BP 139/75
== END 2021-07-13 06:01 | disposition home or self-care (01) ==
LOC: ED 05:19
DX: T49.8X1A Poisoning by other topical agents, accidental (unintentional), initial encounter (principal); L23.2 Allergic contact dermatitis due to cosmetics; I10 Essential (primary) hypertension; E11.9 Type 2 diabetes mellitus without complications; Z79.4 Long term (current) use of insulin; F17.200 Nicotine dependence, unspecified, uncomplicated

== ENCOUNTER 2021-09-27 07:31 | Emergency (ER) | payer OTHER ==
[~2021-09-27] VITALS: Ht 170.2 cm; Wt 72.0 kg
[2021-09-27 07:39] VITALS: BP 153/130
[2021-09-27 07:40] VITALS: BP 121/79
[2021-09-27] MEDS ORDERED: ALAVERT10 M1 PO (07:58)
[2021-09-27] MEDS ORDERED: NEBULIZER KIT/TUBING PO (07:58)
[2021-09-27] MEDS ORDERED: PROAIR HFA108 MCG/AC PO (07:58)
[2021-09-27] MEDS ORDERED: ZPAK PO (07:58)
[2021-09-27 08:00] VITALS: BP 100/71
[2021-09-27 08:50] VITALS: BP 100/71
== END 2021-09-27 08:50 | disposition home or self-care (01) ==
LOC: ED 07:31
DX: J30.9 Allergic rhinitis, unspecified (principal); I10 Essential (primary) hypertension; E11.9 Type 2 diabetes mellitus without complications; F17.210 Nicotine dependence, cigarettes, uncomplicated; Z79.4 Long term (current) use of insulin; Z20.822 Contact with and (suspected) exposure to COVID-19

== ENCOUNTER 2022-04-29 16:59 | Emergency (ER) | payer OTHER ==
[~2022-04-29] VITALS: Ht 170.2 cm; Wt 65.4 kg
[~2022-04-29 16:59] MED LIST changes: +ALAVERT10 M1 PO; +NEBULIZER KIT/TUBING PO
[2022-04-29 17:49] LABS: HEMOGLOBIN 12.9 g/dl (12.0-16.0); IMMATURE GRANULOCYTES 0.3 % (0.0-5.0); MEAN CELL VOLUME 72.1 fL CALC (80.0-100.0); MEAN CORPUSCULAR HGB 23.2 pG CALC (26.0-32.0); MEAN CORPUSCULAR HGB CONC 32.3 g/dL CAL (32.0-36.0); NEUT# 13.68 thou/uL (2.00-7.15); RED BLOOD COUNT 5.55 mill/uL (4.20-5.60); RED CELL DISTRI WIDTH 16.7 % (11.5-15.5)
[2022-04-29 17:55] LABS: ALBUMIN 4.7 g/dL (3.2-5.0); ALKALINE PHOSPHATASE 87 u/l (38-126); ANION GAP 20 (6-22 (CALC)); BILIRUBIN, TOTAL 0.7 mg/dL (0.0-1.4); BUN 8 mg/dL (7-17); BUN/CREATININE RATIO 10 (12-20 (CALC)); CARBON DIOXIDE 22 mmol/l (22-30); CHLORIDE 105 mmol/l (95-108); CREATININE 0.8 mg/dL (0.5-1.0); GFR FOR AFR.AMER. > 60 ML/MIN (>=60 (CALC)); GFR OTHER RACES > 60 ML/MIN (>=60 (CALC)); POTASSIUM 4.6 mmol/l (3.5-5.1); SGOT/AST 24 u/l (14-36); SODIUM 141 mmol/l (137-146); TOTAL PROTEIN 7.5 g/dL (6.3-8.2)
[2022-04-29] MEDS ORDERED: METFORMIN500 M2 PO (18:39)
[2022-04-29 19:00] VITALS: BP 117/77
[2022-04-29] MEDS ORDERED: PROVENTIL0.083 % IN (19:01)
[2022-04-29] MEDS ORDERED: PREDNISONE20 MG PO (19:01)
== END 2022-04-29 19:10 | disposition home or self-care (01) ==
LOC: ED 16:59
PROVIDERS: Internal Medicine
DX: J45.909 Unspecified asthma, uncomplicated (principal); I10 Essential (primary) hypertension; E11.9 Type 2 diabetes mellitus without complications; F17.210 Nicotine dependence, cigarettes, uncomplicated; Z79.84 Long term (current) use of oral hypoglycemic drugs
CPT/HCPCS: J3475

== ENCOUNTER 2022-05-17 16:36 | Emergency (ER) | payer OTHER ==
[~2022-05-17] VITALS: Ht 170.2 cm; Wt 63.0 kg
[2022-05-17 17:35] LABS: HEMATOCRIT 39.6 % (37.0-47.0); HEMOGLOBIN 12.7 g/dl (12.0-16.0); IMMATURE GRANULOCYTES 0.2 % (0.0-5.0); MEAN CELL VOLUME 72.5 fL CALC (80.0-100.0); MEAN CORPUSCULAR HGB 23.3 pG CALC (26.0-32.0); MEAN CORPUSCULAR HGB CONC 32.1 g/dL CAL (32.0-36.0); NEUT# 6.94 thou/uL (2.00-7.15); RED BLOOD COUNT 5.46 mill/uL (4.20-5.60); RED CELL DISTRI WIDTH 15.3 % (11.5-15.5)
[2022-05-17 17:45] LABS: ALKALINE PHOSPHATASE 90 u/l (38-126); BUN 10 mg/dL (7-17); BUN/CREATININE RATIO 13 (12-20 (CALC)); CARBON DIOXIDE 26 mmol/l (22-30); CHLORIDE 109 mmol/l (95-108); CREATININE 0.8 mg/dL (0.5-1.0); GFR FOR AFR.AMER. > 60 ML/MIN (>=60 (CALC)); GFR OTHER RACES > 60 ML/MIN (>=60 (CALC)); SGOT/AST 21 u/l (14-36); SODIUM 140 mmol/l (137-146); TOTAL PROTEIN 7.1 g/dL (6.3-8.2)
[2022-05-17 17:46] LABS: ANION GAP 9 (6-22 (CALC)); BILIRUBIN, TOTAL 0.4 mg/dL (0.0-1.4); POTASSIUM 3.9 mmol/l (3.5-5.1)
[2022-05-17] MEDS ORDERED: MEDDOSEPAK PO (18:11)
[2022-05-17 18:19] VITALS: BP 146/87
== END 2022-05-17 18:26 | disposition home or self-care (01) ==
LOC: ED 16:36
PROVIDERS: Nurse Practitioner
DX: M25.532 Pain in left wrist (principal); I10 Essential (primary) hypertension; E11.9 Type 2 diabetes mellitus without complications; J45.909 Unspecified asthma, uncomplicated; F17.200 Nicotine dependence, unspecified, uncomplicated; Z79.84 Long term (current) use of oral hypoglycemic drugs

== ENCOUNTER 2022-06-03 20:15 | Emergency (ER) | payer OTHER ==
[~2022-06-03] VITALS: Ht 170.2 cm; Wt 74.0 kg
[2022-06-03 21:02] LABS: BASO% 0.4 % (0-3); EOS% 1.7 % (0-8); HEMATOCRIT 39.1 % (37.0-47.0); HEMOGLOBIN 13.1 g/dl (12.0-16.0); IMMATURE GRANULOCYTES 0.5 % (0.0-5.0); LYMPH% 40.3 % (15-41); MEAN CELL VOLUME 71.7 fL CALC (80.0-100.0); MEAN CORPUSCULAR HGB CONC 33.5 g/dL CAL (32.0-36.0); MONO% 5.3 % (2-13); NEUT# 6.9 thou/uL (2.00-7.15); NEUT% 51.8 % (42-76); RED BLOOD COUNT 5.45 mill/uL (4.20-5.60); RED CELL DISTRI WIDTH 15.9 % (11.5-15.5)
[2022-06-03 21:12] LABS: ALBUMIN 4.6 g/dL (3.2-5.0); ALKALINE PHOSPHATASE 111 u/l (38-126); ANION GAP 12 (6-22 (CALC)); BILIRUBIN, TOTAL 0.4 mg/dL (0.0-1.4); BUN 13 mg/dL (7-17); BUN/CREATININE RATIO 22 (12-20 (CALC)); CARBON DIOXIDE 24 mmol/l (22-30); CHLORIDE 104 mmol/l (95-108); CREATININE 0.6 mg/dL (0.5-1.0); GFR FOR AFR.AMER. > 60 ML/MIN (>=60 (CALC)); GFR OTHER RACES > 60 ML/MIN (>=60 (CALC)); POTASSIUM 4.2 mmol/l (3.5-5.1); SGOT/AST 23 u/l (14-36); SODIUM 135 mmol/l (137-146); TOTAL PROTEIN 7.7 g/dL (6.3-8.2)
[2022-06-03 21:35] LABS: URINE BILIRUBIN - DIPSTICK NEGATIVE (NEGATIVE); URINE BLOOD DIPSTICK NEGATIVE (NEGATIVE); URINE COLOR YELLOW; URINE GLUCOSE - DIPSTICK >=1000 mg/dL (NEGATIVE); URINE KETONE NEGATIVE (NEGATIVE); URINE LEUK ESTERASE NEGATIVE (NEGATIVE); URINE PH 5.5 (4.5-8.0); URINE PROTEIN - DIPSTICK NEGATIVE (NEG-TRACE); URINE SPECIFIC GRAVITY 1.025; URINE UROBILINOGEN - DIPSTICK 0.2 E.U./dL (0.2)
[2022-06-03 21:37] LABS: URINE NITRITE - DIPSTICK NEGATIVE (Negative)
[2022-06-03 22:30] VITALS: BP 119/81
== END 2022-06-03 22:41 | disposition home or self-care (01) ==
LOC: ED 20:15
PROVIDERS: Emergency Medicine
DX: E11.65 Type 2 diabetes mellitus with hyperglycemia (principal); I10 Essential (primary) hypertension; J45.909 Unspecified asthma, uncomplicated; F17.200 Nicotine dependence, unspecified, uncomplicated; Z79.84 Long term (current) use of oral hypoglycemic drugs

== ENCOUNTER 2022-09-04 06:54 | Emergency (ER) | payer OTHER ==
[~2022-09-04] VITALS: Ht 170.2 cm; Wt 160.0 kg
[2022-09-04] MEDS ORDERED: NAPROXEN500 MG PO (07:22)
[2022-09-04 07:45] VITALS: BP 179/90
== END 2022-09-04 07:48 | disposition home or self-care (01) ==
LOC: ED 06:54
DX: R07.81 Pleurodynia (principal); I10 Essential (primary) hypertension; J45.909 Unspecified asthma, uncomplicated; F17.210 Nicotine dependence, cigarettes, uncomplicated

== ENCOUNTER 2022-10-22 11:55 | Emergency (ER) | payer OTHER ==
[~2022-10-22] VITALS: Ht 152.4 cm; Wt 74.8 kg
[~2022-10-22 11:55] MED LIST changes: +NAPROXEN500 MG PO
[2022-10-22 12:21] VITALS: BP 124/81
[2022-10-22 12:31] VITALS: BP 136/80
[2022-10-22 13:00] VITALS: BP 117/76
[2022-10-22 13:27] VITALS: BP 117/76
[2022-10-22] MEDS ORDERED: BACTRIM DS1 TAB PO ×2 (13:33→13:41)
== END 2022-10-22 13:41 | disposition home or self-care (01) ==
LOC: ED 11:55
DX: L02.215 Cutaneous abscess of perineum (principal); I10 Essential (primary) hypertension; F17.200 Nicotine dependence, unspecified, uncomplicated

== ENCOUNTER 2022-10-24 09:21 | Emergency (ER) | payer OTHER ==
[~2022-10-24] VITALS: Ht 170.2 cm; Wt 73.0 kg
[~2022-10-24 09:21] MED LIST changes: +BACTRIM DS1 TAB PO
[2022-10-24 09:57] VITALS: BP 122/84
[2022-10-24 10:00] VITALS: BP 112/77
[2022-10-24 10:15] VITALS: BP 123/83
[2022-10-24 10:40] VITALS: BP 123/83
== END 2022-10-24 10:44 | disposition home or self-care (01) ==
LOC: ED 09:21
DX: Z48.01 Encounter for change or removal of surgical wound dressing (principal); I10 Essential (primary) hypertension; E11.9 Type 2 diabetes mellitus without complications; J45.909 Unspecified asthma, uncomplicated; F17.210 Nicotine dependence, cigarettes, uncomplicated; Z79.84 Long term (current) use of oral hypoglycemic drugs

== ENCOUNTER 2023-02-05 05:51 | Emergency (ER) | payer OTHER ==
[~2023-02-05] VITALS: Ht 170.2 cm; Wt 72.0 kg
[2023-02-05 05:58] VITALS: BP 119/72
[2023-02-05 06:00] VITALS: BP 133/87
[2023-02-05] MEDS ORDERED: CLOBETASOL0.05 % EX (06:10)
[2023-02-05 06:13] VITALS: BP 133/87
== END 2023-02-05 06:30 | disposition home or self-care (01) ==
LOC: ED 05:51
DX: L24.4 Irritant contact dermatitis due to drugs in contact with skin (principal); T49.4X5A Adverse effect of keratolytics, keratoplastics, and other hair treatment drugs and preparations, initial encounter; I10 Essential (primary) hypertension; E11.9 Type 2 diabetes mellitus without complications; J45.909 Unspecified asthma, uncomplicated; F17.200 Nicotine dependence, unspecified, uncomplicated; Z79.84 Long term (current) use of oral hypoglycemic drugs

== ENCOUNTER 2023-06-25 15:30 | Emergency (ER) | payer MEDICAID ==
[~2023-06-25] VITALS: Ht 170.2 cm; Wt 72.0 kg
[~2023-06-25 15:30] MED LIST changes: +CLOBETASOL0.05 % EX
[2023-06-25 15:35] VITALS: BP 155/86
[2023-06-25 15:45] VITALS: BP 128/79
[2023-06-25 16:01] VITALS: BP 93/73
[2023-06-25] MEDS ORDERED: MOTRIN800 MG PO (16:58)
[2023-06-25] MEDS ORDERED: CLINDAMYCIN HY150 MG PO (16:58)
[2023-06-25 17:02] VITALS: BP 93/73
== END 2023-06-25 17:14 | disposition home or self-care (01) ==
LOC: ED 15:30
DX: N76.4 Abscess of vulva (principal); I10 Essential (primary) hypertension; E11.9 Type 2 diabetes mellitus without complications; J45.909 Unspecified asthma, uncomplicated; F17.200 Nicotine dependence, unspecified, uncomplicated; Z79.84 Long term (current) use of oral hypoglycemic drugs; Z79.4 Long term (current) use of insulin

== ENCOUNTER 2024-01-11 07:49 | Emergency (ER) | payer MEDICAID ==
[~2024-01-11] VITALS: Ht 170.2 cm; Wt 73.4 kg
[~2024-01-11 07:49] MED LIST changes: +CLINDAMYCIN HY150 MG PO
[2024-01-11 07:54] VITALS: BP 106/74
[2024-01-11 08:00] VITALS: BP 114/65
[2024-01-11 08:15] VITALS: BP 118/66
[2024-01-11] MEDS ORDERED: PAXLOVID 10 X 11 TAB PO (09:04)
[2024-01-11 09:10] VITALS: BP 118/66
== END 2024-01-11 09:18 | disposition home or self-care (01) ==
LOC: ED 07:49
DX: U07.1 COVID-19 (principal); R50.9 Fever, unspecified; R05.9 Cough, unspecified; R52 Pain, unspecified; R04.2 Hemoptysis; J02.9 Acute pharyngitis, unspecified; I10 Essential (primary) hypertension; E11.9 Type 2 diabetes mellitus without complications; J45.909 Unspecified asthma, uncomplicated; Z79.84 Long term (current) use of oral hypoglycemic drugs; Z79.4 Long term (current) use of insulin; F17.200 Nicotine dependence, unspecified, uncomplicated

== ENCOUNTER 2024-01-13 09:13 | Emergency (ER) | payer MEDICAID ==
[~2024-01-13] VITALS: Ht 170.2 cm; Wt 73.0 kg
[~2024-01-13 09:13] MED LIST changes: +PAXLOVID 10 X 11 TAB PO
[2024-01-13 09:26] VITALS: BP 122/76
[2024-01-13 09:30] VITALS: BP 130/77
[2024-01-13] MEDS ORDERED: SODIUM CHLORIDE 0.9% 1,000 ML IV ONE (09:35)
[2024-01-13 09:42] LABS: BASO% 0.3 % (0-3); EOS% 0.2 % (0-8); HEMATOCRIT 43.9 % (37.0-47.0); HEMOGLOBIN 13.9 g/dl (12.0-16.0); IMMATURE GRANULOCYTES 0.2 % (0.0-5.0); LYMPH% 40.5 % (15-41); MEAN CORPUSCULAR HGB 22.8 pG CALC (26.0-32.0); MEAN CORPUSCULAR HGB CONC 31.7 g/dL CAL (32.0-36.0); MONO% 9.4 % (2-13); NEUT# 3.04 thou/uL (2.00-7.15); NEUT% 49.4 % (42-76); RED BLOOD COUNT 6.1 mill/uL (4.20-5.60); RED CELL DISTRI WIDTH 16.3 % (11.5-15.5)
[2024-01-13 09:45] VITALS: BP 105/68
[2024-01-13 10:11] LABS: ALBUMIN 4.5 g/dL (3.2-5.0); ALKALINE PHOSPHATASE 76 u/l (38-126); ANION GAP 12 (6-22 (CALC)); BILIRUBIN, TOTAL 0.6 mg/dL (0.02-1.3); BUN 19 mg/dL (8-23); BUN/CREATININE RATIO 17 (12-20 (CALC)); CARBON DIOXIDE 25 mmol/l (22-30); CHLORIDE 107 mmol/l (95-108); CREATININE 1.2 mg/dL (0.5-1.0); ESTIMATED GFR 51 ML/MIN (>=90 (CALC)); LIPASE 138 u/l (23-300); SGOT/AST 28 u/l (9-36); SODIUM 140 mmol/l (137-146); TOTAL PROTEIN 7.8 g/dL (6.3-8.2)
[2024-01-13 11:20] VITALS: BP 138/72
[2024-01-13 11:44] VITALS: BP 149/76
[2024-01-13 11:55] LABS: URINE BILIRUBIN - DIPSTICK Negative (NEGATIVE); URINE BLOOD DIPSTICK Negative (NEGATIVE); URINE COLOR Yellow; URINE GLUCOSE - DIPSTICK Negative (NEGATIVE); URINE KETONE Negative (NEGATIVE); URINE LEUK ESTERASE Negative (NEGATIVE); URINE NITRITE - DIPSTICK Negative (Negative); URINE PH 5.5 (4.5-8.0); URINE PROTEIN - DIPSTICK Negative (NEG-TRACE); URINE SPECIFIC GRAVITY 1.015; URINE UROBILINOGEN - DIPSTICK 0.2 E.U./dL (0.2)
[2024-01-13 12:02] VITALS: BP 149/76
== END 2024-01-13 12:09 | disposition home or self-care (01) ==
LOC: ED 09:13
PROVIDERS: Family Medicine
DX: U07.1 COVID-19 (principal); R53.1 Weakness; R19.7 Diarrhea, unspecified; I10 Essential (primary) hypertension; E11.9 Type 2 diabetes mellitus without complications; J45.909 Unspecified asthma, uncomplicated; F17.200 Nicotine dependence, unspecified, uncomplicated; Z79.4 Long term (current) use of insulin; Z79.84 Long term (current) use of oral hypoglycemic drugs

== ENCOUNTER 2024-02-06 16:30 | Emergency (ER) | payer MEDICAID ==
[~2024-02-06] VITALS: Ht 170.2 cm; Wt 73.0 kg
[2024-02-06] VITALS (7 sets, daily range): BP systolic 128–153; BP diastolic 82–89
[2024-02-06 17:05] LABS: BASO% 0.4 % (0-3); EOS% 2.7 % (0-8); HEMATOCRIT 40.1 % (37.0-47.0); HEMOGLOBIN 12.8 g/dl (12.0-16.0); IMMATURE GRANULOCYTES 0.7 % (0.0-5.0); MEAN CELL VOLUME 72.4 fL CALC (80.0-100.0); MEAN CORPUSCULAR HGB 23.1 pG CALC (26.0-32.0); MEAN CORPUSCULAR HGB CONC 31.9 g/dL CAL (32.0-36.0); MONO% 4.8 % (2-13); NEUT# 7.04 thou/uL (2.00-7.15); NEUT% 54.4 % (42-76); RED BLOOD COUNT 5.54 mill/uL (4.20-5.60); RED CELL DISTRI WIDTH 15.9 % (11.5-15.5)
[2024-02-06 17:27] LABS: ALBUMIN 4.5 g/dL (3.2-5.0); ALKALINE PHOSPHATASE 70 u/l (38-126); ANION GAP 12 (6-22 (CALC)); BILIRUBIN, TOTAL 0.5 mg/dL (0.02-1.3); BUN 6 mg/dL (8-23); BUN/CREATININE RATIO 8 (12-20 (CALC)); CHLORIDE 111 mmol/l (95-108); CREATININE 0.8 mg/dL (0.5-1.0); ESTIMATED GFR 83 ML/MIN (>=90 (CALC)); POTASSIUM 4.1 mmol/l (3.5-5.1); SGOT/AST 46 u/l (9-36); SODIUM 138 mmol/l (137-146); TOTAL PROTEIN 7.7 g/dL (6.3-8.2)
[2024-02-06 17:39] LABS: CARBON DIOXIDE 19 mmol/l (22-30)
[2024-02-06] MEDS ORDERED: ASPIRIN 81 MG/TAB PO ONE (17:55)
== END 2024-02-06 18:06 | disposition left against medical advice (07) ==
LOC: ED 16:30
PROVIDERS: Nurse Practitioner
DX: R07.89 Other chest pain (principal); I10 Essential (primary) hypertension; E11.9 Type 2 diabetes mellitus without complications; J44.9 Chronic obstructive pulmonary disease, unspecified; F17.200 Nicotine dependence, unspecified, uncomplicated; Z79.84 Long term (current) use of oral hypoglycemic drugs; Z53.29 Procedure and treatment not carried out because of patient's decision for other reasons; Z20.822 Contact with and (suspected) exposure to COVID-19

== ENCOUNTER 2024-05-25 13:32 | Emergency (ER) | payer MEDICAID ==
[~2024-05-25] VITALS: Ht 170.2 cm; Wt 71.0 kg
[2024-05-25 14:17] VITALS: BP 157/72
[2024-05-25] MEDS ORDERED: methylPREDNISolone SODIUM SUCC 125 MG/2 ML SDV IM ONE (14:40)
[2024-05-25] MEDS ORDERED: IPRATROPIUM-Albuterol 0.5MG-2.5MG/3 ML IN ONE (14:40)
[2024-05-25 14:57] VITALS: BP 164/83
[2024-05-25 14:58] VITALS: BP 164/83
[2024-05-25] MEDS ORDERED: NEBULIZER KIT/TUBING IN (15:14)
[2024-05-25] MEDS ORDERED: ALBUTEROL SUL1.25 MG IN (15:14)
[2024-05-25] MEDS ORDERED: ZPAK PO (15:14)
[2024-05-25] MEDS ORDERED: PREDNISONE20 MG PO (15:14)
== END 2024-05-25 15:24 | disposition home or self-care (01) ==
LOC: ED 13:32
DX: B34.9 Viral infection, unspecified (principal); J45.909 Unspecified asthma, uncomplicated; I10 Essential (primary) hypertension; E11.9 Type 2 diabetes mellitus without complications; F17.200 Nicotine dependence, unspecified, uncomplicated; Z79.84 Long term (current) use of oral hypoglycemic drugs; Z79.4 Long term (current) use of insulin; Z20.822 Contact with and (suspected) exposure to COVID-19

== ENCOUNTER 2024-05-29 20:15 | Emergency (ER) | payer MEDICAID ==
[~2024-05-29] VITALS: Ht 170.2 cm; Wt 71.8 kg
[~2024-05-29 20:15] MED LIST changes: +ALBUTEROL SUL1.25 MG IN; +NEBULIZER KIT/TUBING IN
[2024-05-29 21:25] VITALS: BP 128/82
[2024-05-29] MEDS ORDERED: INSULIN REGULAR (HUMAN) 100 UNIT/ML INJ SC ONE (21:40)
== END 2024-05-29 22:31 | disposition home or self-care (01) ==
LOC: ED 20:15
DX: E11.65 Type 2 diabetes mellitus with hyperglycemia (principal); I10 Essential (primary) hypertension; J45.909 Unspecified asthma, uncomplicated; Z79.4 Long term (current) use of insulin; Z79.84 Long term (current) use of oral hypoglycemic drugs; F17.200 Nicotine dependence, unspecified, uncomplicated

== ENCOUNTER 2024-08-02 08:39 | Emergency (ER) | payer MEDICAID ==
[~2024-08-02] VITALS: Ht 170.2 cm; Wt 65.9 kg
[2024-08-02] VITALS (8 sets, daily range): BP systolic 102–157; BP diastolic 71–104
[2024-08-02] MEDS ORDERED: LIDOcaine HCl 1% (Local Anesth.) 20 ML VIAL STI STA (09:15)
[2024-08-02] MEDS ORDERED: POVIDONE IODINE 0.5 OZ/BTL TOP STA (09:15)
[2024-08-02] MEDS ORDERED: CLINDAMYCIN HCL 150 MG CAP PO ONE (09:20)
[2024-08-02] MEDS ORDERED: Acetaminophen 300 MG/Codeine 30 MG/COMBO PO ONE (09:20)
[2024-08-02] MEDS ORDERED: CLINDAMYCIN HC150 MG PO (10:22)
[2024-08-02] MEDS ORDERED: TRAMADOL HYDROC50 M1 PO (10:22)
[2024-08-02] MEDS ORDERED: PROTONIX40 MG PO (10:22)
== END 2024-08-02 10:49 | disposition home or self-care (01) ==
LOC: ED 08:39
DX: N76.4 Abscess of vulva (principal); I10 Essential (primary) hypertension; E11.9 Type 2 diabetes mellitus without complications; J45.909 Unspecified asthma, uncomplicated; F17.200 Nicotine dependence, unspecified, uncomplicated; Z79.4 Long term (current) use of insulin; Z79.84 Long term (current) use of oral hypoglycemic drugs

== ENCOUNTER 2024-08-12 10:14 | Emergency (ER) | payer MEDICAID ==
[~2024-08-12] VITALS: Ht 170.2 cm; Wt 63.5 kg
[2024-08-12] VITALS (10 sets, daily range): BP systolic 123–141; BP diastolic 68–83
[~2024-08-12 10:14] MED LIST changes: +CLINDAMYCIN HC150 MG PO; +TRAMADOL HYDROC50 M1 PO
[2024-08-12] MEDS ORDERED: MECLIZINE HCL 25 MG/TAB PO ONE (11:00)
[2024-08-12 11:05] LABS: BASO% 0.2 % (0-3); EOS% 0.9 % (0-8); HEMATOCRIT 40.6 % (37.0-47.0); HEMOGLOBIN 12.9 g/dl (12.0-16.0); IMMATURE GRANULOCYTES 0.4 % (0.0-5.0); LYMPH% 33.5 % (15-41); MEAN CELL VOLUME 71.5 fL CALC (80.0-100.0); MEAN CORPUSCULAR HGB 22.7 pG CALC (26.0-32.0); MEAN CORPUSCULAR HGB CONC 31.8 g/dL CAL (32.0-36.0); NEUT# 8.37 thou/uL (2.00-7.15); RED BLOOD COUNT 5.68 mill/uL (4.20-5.60); RED CELL DISTRI WIDTH 15.8 % (11.5-15.5)
[2024-08-12 11:15] LABS: PROTHROMBIN TIME 10.9 SECONDS (9.0-12.5)
[2024-08-12 11:16] LABS: ALBUMIN 4.4 g/dL (3.2-5.0); ALKALINE PHOSPHATASE 81 u/l (38-126); BUN 12 mg/dL (8-23); BUN/CREATININE RATIO 19 (12-20 (CALC)); CHLORIDE 107 mmol/l (95-108); CREATININE 0.6 mg/dL (0.5-1.0); ESTIMATED GFR 101 ML/MIN (>=90 (CALC)); SGOT/AST 40 u/l (9-36); SODIUM 140 mmol/l (137-146); TOTAL PROTEIN 7.7 g/dL (6.3-8.2)
[2024-08-12 11:18] LABS: ANION GAP 12 (6-22 (CALC)); CARBON DIOXIDE 25 mmol/l (22-30)
[2024-08-12 12:53] LABS: URINE BILIRUBIN - DIPSTICK Negative (NEGATIVE); URINE BLOOD DIPSTICK Negative (NEGATIVE); URINE COLOR Yellow; URINE GLUCOSE - DIPSTICK 500 mg/dL (NEGATIVE); URINE KETONE 15 mg/dL (NEGATIVE); URINE LEUK ESTERASE Negative (NEGATIVE); URINE NITRITE - DIPSTICK Negative (Negative); URINE PH 5.5 (4.5-8.0); URINE PROTEIN - DIPSTICK Negative (NEG-TRACE); URINE SPECIFIC GRAVITY 1.025; URINE UROBILINOGEN - DIPSTICK 0.2 E.U./dL (0.2)
[2024-08-12] MEDS ORDERED: MECLIZINE25 M1 PO (12:59)
== END 2024-08-12 13:07 | disposition home or self-care (01) ==
LOC: ED 10:14
PROVIDERS: Family Medicine
DX: H81.10 Benign paroxysmal vertigo, unspecified ear (principal); I10 Essential (primary) hypertension; E11.9 Type 2 diabetes mellitus without complications; E78.00 Pure hypercholesterolemia, unspecified; J45.909 Unspecified asthma, uncomplicated; F17.200 Nicotine dependence, unspecified, uncomplicated; Z79.84 Long term (current) use of oral hypoglycemic drugs